=== PATIENT | male | born 1945 | race Caucasian/White ===

== ENCOUNTER 2017-02-18 12:42 | Inpatient (IN) | payer MEDICARE, BC ==
[~2017-02-18] VITALS: Ht 172.7 cm; Wt 73.0 kg
[2017-03-30] VITALS (14 sets, daily range): BP systolic 103–133; BP diastolic 58–79; PULSE 65–94; TEMP 97–98.5
[2017-03-30] MEDS ORDERED: HCTZ 25MG TAB25 MG PO (07:51)
[2017-03-30] MEDS ORDERED: ZOCOR 20MG20 MG PO (07:51)
[2017-03-30] MEDS ORDERED: ZANTAC 150MG T150 MG PO (07:52)
[2017-03-30] MEDS ORDERED: TOPROL XL 25MG25 MG PO (07:52)
[2017-03-30] MEDS ORDERED: ALEVE 220MG220 MG PO (07:53)
[2017-03-30] MEDS ORDERED: ALEVE PM PO (07:53)
[2017-03-30] MEDS ORDERED: CITRUCEL WITH500 MG PO ×2 (07:54→07:55)
[2017-03-31 01:38] VITALS: BP 104/61; PULSE 78; TEMP 98.1
[2017-03-31 04:27] VITALS: BP 109/58; PULSE 73; TEMP 98
[2017-03-31 07:20] VITALS: BP 113/72; PULSE 94; TEMP 98.4
[2017-03-31 08:11] LABS: BASO % 0.1 % (0.0-2.0); EOS % 0.2 % (0-4.0); GRAN # 8.9 (1.4-6.5); GRAN % 74.6 % (42.2-75.2); HEMATOCRIT 42.3 % (42.0-52.0); HEMOGLOBIN 14.2 g/dl (13.5-18.0); LYMPH # 1.9 (1.2-3.4); LYMPH % 15.7 % (20.0-51.0); MEAN CELL VOLUME 96 fl (80.0-100.0); MEAN CORPUSCULAR HEMOGLOBIN 32 pg (27.0-31.0); MEAN CORPUSCULAR HGB CONC 34 g/dl (33.0-37.0); MEAN PLATELET VOLUME 10.4 fl (7.4-10.4); MONO % 8.7 % (1.7-9.3); PLATELET COUNT 188 K/mm3 (130-400); WHITE BLOOD COUNT 11.9 K/mm3 (4.8-10.8)
[2017-03-31 08:28] LABS: CALCIUM 8.2 mg/dL (8.4-10.2); CREATININE, serum 0.99 mg/dL (0.66-1.25); POTASSIUM 3.5 mmol/L (3.4-5.0)
[2017-03-31 11:20] VITALS: BP 114/69; PULSE 62; TEMP 98.6
[2017-03-31 13:33] VITALS: BP 128/66; PULSE 65; TEMP 98
== END 2017-03-31 16:25 | disposition home or self-care (01) | DRG 708 ==
LOC: INPTSU 03-30 07:02 → SURG 03-30 08:00 → JCC 03-30 12:35
PROVIDERS: Urology
PROC: 8E0W4CZ Robotic Assisted Procedure of Trunk Region, Percutaneous Endoscopic Approach (ICD-10-PCS; 2017-03-30)
PROC: 0VT04ZZ Resection of Prostate, Percutaneous Endoscopic Approach (ICD-10-PCS; principal; 2017-03-30 08:30)
DX: C61 Malignant neoplasm of prostate (principal); I10 Essential (primary) hypertension
CPT/HCPCS: A9284; C1713; J0690; J1100; J1885; J2405; J2704; J2765; J3010; J7120

== ENCOUNTER 2018-03-22 07:01 | Day surgery (SDC) | payer MEDICARE, BC ==
[~2018-03-22] VITALS: Ht 172.7 cm; Wt 71.9 kg
[~2018-03-22 07:01] MED LIST: ALEVE 220MG220 MG PO; ALEVE PM PO; CITRUCEL WITH500 MG PO; HCTZ 25MG TAB25 MG PO; TOPROL XL 25MG25 MG PO; ZANTAC 150MG T150 MG PO; ZOCOR 20MG20 MG PO
[2018-03-22 07:28] VITALS: BP 132/88; PULSE 72; TEMP 98.7
[2018-03-22] MEDS ORDERED: ADVIL PM 38 MG-1 TAB PO (07:36)
[2018-03-22] MEDS ORDERED: REVATIO20 MG PO (07:37)
[2018-03-22 08:50] VITALS: BP 117/87; PULSE 72; TEMP 98.1
[2018-03-22 09:05] VITALS: BP 110/81; PULSE 69
[2018-03-22 09:20] VITALS: BP 107/79; PULSE 73
== END 2018-03-22 09:41 | disposition home or self-care (01) ==
LOC: SDCO 07:01
DX: Z12.11 Encounter for screening for malignant neoplasm of colon (principal); Z83.71 Family history of colonic polyps; K64.0 First degree hemorrhoids; K57.30 Diverticulosis of large intestine without perforation or abscess without bleeding; I10 Essential (primary) hypertension; E78.00 Pure hypercholesterolemia, unspecified; Z85.46 Personal history of malignant neoplasm of prostate; Z79.899 Other long term (current) drug therapy
CPT/HCPCS: OP; J2250; J3010; J7030